=== PATIENT | male | born 1990 | race Caucasian/White ===

== ENCOUNTER 2016-10-19 02:34 | Inpatient (IN) | payer SELFPAY ==
[~2016-10-19] VITALS: Ht 182.9 cm; Wt 77.1 kg
[2016-10-19] MEDS ORDERED: ONDANSETRON HCL 4 MG/2 ML VIAL ONE (03:07)
[2016-10-19] MEDS ORDERED: SODIUM CHLORIDE 0.9% 1,000 ML IV ONE ×2 (03:15→07:30)
[2016-10-19] MEDS ORDERED: DEXTROSE (50%) 50ML SYRG IV ONE (03:15)
[2016-10-19] MEDS ORDERED: ONDANSETRON HCL 4 MG/2 ML VIAL IV ONE (03:15)
[2016-10-19 03:52] LABS: Basophils # (auto) 0.1 uL; Basophils % (auto) 0.3 % (0.0-2.0); CONDITION Y; DEFINITIVE SEE PRINTOUT; Eosinophils # (auto) 0.1 uL; Eosinophils % (auto) 0.4 % (0.0-7.0); Hematocrit 49.6 % (41.0-53.0); Hemoglobin 16.9 g/dL (13.5-17.5); Lymphocytes # (auto) 5.5 uL; Lymphocytes % (auto) 21.2 % (10.0-50.0); Mean Corpuscular Hgb Conc. 34.1 g/dL (32.0-36.0); Mean Corpuscular Volume 88.1 fL (80.0-100.0); Mean Platelet Volume 13.9 fL (7.4-10.4); Monocytes % (auto) 3.8 % (0.0-12.0); Neutrophils # (auto) 19.3 uL; Neutrophils % (auto) 74.3 % (37.0-80.0); Platelet Count (auto) 176 10^3/uL (140-450); SUSPECT SEE PRINTOUT
[2016-10-19 04:08] LABS: INR 1.01 (0.9-1.15); Partial Thromboplastin Time 24.3 sec (22.64-33.71)
[2016-10-19 04:26] LABS: BUN/Creatinine Ratio 18.1; Bilirubin, Total 0.9 mg/dL (0.2-1.0); Calcium 9.5 mg/dL (8.5-10.1); Salicylate < 1.7 mg/dL (2.8-20.0); Total Protein 8.2 g/dL (6.4-8.2)
[2016-10-19 04:28] LABS: Acetaminophen < 2.0 ug/mL (10-30)
[2016-10-19 04:33] LABS: Potassium 2.6 mmol/L (3.5-5.1)
[2016-10-19] MEDS ORDERED: POTASSIUM CHL 20MEQ/100ML 100 ML IV ONE (05:05)
[2016-10-19] MEDS: POTASSIUM CHL 20MEQ/100ML 100 ML IV SCH ×2 (05:17→07:31)
[2016-10-19] MEDS ORDERED: PIPERACILLIN-TAZOB 3.375GM 100 ML IV ONE (05:30)
[2016-10-19] MEDS ORDERED: SODIUM CHLORIDE 0.9% 100 ML IV ONE (07:30)
[2016-10-19] MEDS ORDERED: VANCOMYCIN PER PHARMACY 0 MG IV SCH (08:15)
[2016-10-19 08:44] LABS: Urine Bilirubin Negative (Negative); Urine Blood Negative /uL (Negative); Urine Color Yellow (Yellow); Urine Glucose 3+ mg/dL (Normal); Urine Ketone 3+ (Negative); Urine Nitrite Negative (Negative); Urine RBC 1 /hpf (0 - 3); Urine Urobilinogen Normal (Negative)
[2016-10-19] MEDS ORDERED: NITROGLYCERIN 0.4 MG SL TAB SL PRN (08:45)
[2016-10-19] MEDS ORDERED: ONDANSETRON HCL 4 MG/2 ML VIAL IV PRN (08:45)
[2016-10-19] MEDS ORDERED: HYDROcodone-ACET 5/325MG TAB PO PRN (08:45)
[2016-10-19] MEDS ORDERED: TEMAZEPAM 15 MG CAP PO PRN (08:45)
[2016-10-19] MEDS ORDERED: ACETAMINOPHEN 325 MG TAB PO PRN (08:45)
[2016-10-19] MEDS ORDERED: MORPHINE SULF INJ 2 MG/ML SYRINGE 1ML IV PRN ×2 (08:45)
[2016-10-19] MEDS: SODIUM CHLORIDE 0.9% 1,000 ML IV SCH ×3 (09:01→12:36)
[2016-10-19] MEDS ORDERED: diphenhdrAMINE HCL 50 MG/1 ML VL ONE (09:22)
[2016-10-19 09:23] LABS: Anion Gap 9 (5-15); BUN/Creatinine Ratio 19.8; Blood Urea Nitrogen 18 mg/dL (7-18); Calcium 7.8 mg/dL (8.5-10.1); Carbon Dioxide 22 mmol/L (21-32); Chloride 112 mmol/L (98-107); GFR African American 130 mL/min; GFR Non-African American 107 mL/min; Glucose 68 mg/dL (74-106); Potassium 4.6 mmol/L (3.5-5.1); Sodium 143 mmol/L (136-145)
[2016-10-19] MEDS ORDERED: diphenhdrAMINE HCL 50 MG/1 ML VL IV ONE (09:30)
[2016-10-19 10:05] VITALS: BP 153/93
[2016-10-19] MEDS: MULTIPLE VITAMIN TAB PO SCH (10:18)
[2016-10-19] MEDS: FAMOTIDINE 20 MG TAB PO SCH ×2 (10:18→22:23)
[2016-10-19] MEDS: OSELTAMIVIR 75 MG CAP PO SCH ×2 (10:18→22:23)
[2016-10-19] MEDS: VANCOMYCIN 1,250 MG in D5W 5% 250 ML IV SCH ×2 (12:36→22:23)
[2016-10-19 13:00] VITALS: BP 138/67
[2016-10-19] MEDS: PIPERACILLIN-TAZOB 3.375GM 100 ML IV SCH ×2 (15:59→18:32)
[2016-10-19 17:00] VITALS: BP 145/50
[2016-10-19 20:00] VITALS: BP 121/66
[2016-10-19 22:06] VITALS: BP 121/66
[2016-10-20] MEDS: PIPERACILLIN-TAZOB 3.375GM 100 ML IV SCH ×2 (00:13→05:37)
[2016-10-20] MEDS ORDERED: [UNRECOGNIZED DRUG - CODE] OR (02:45)
[2016-10-20 05:06] VITALS: BP 115/67
[2016-10-20 06:40] LABS: Albumin 3.6 g/dL (3.4-5.0); Anion Gap 8 (5-15); Calcium 8.3 mg/dL (8.5-10.1); Carbon Dioxide 27 mmol/L (21-32); Chloride 109 mmol/L (98-107); Sodium 144 mmol/L (136-145)
[2016-10-20 06:42] LABS: Basophils # (auto) 0 uL; Basophils % (auto) 0.3 % (0.0-2.0); CONDITION Y; Eosinophils # (auto) 0.1 uL; Eosinophils % (auto) 0.9 % (0.0-7.0); Hematocrit 42.5 % (41.0-53.0); Hemoglobin 14.7 g/dL (13.5-17.5); Lymphocytes # (auto) 1.5 uL; Mean Corpuscular Hemoglobin 30.3 pg (28.0-32.0); Mean Corpuscular Hgb Conc. 34.5 g/dL (32.0-36.0); Mean Platelet Volume 12.6 fL (7.4-10.4); Monocytes # (auto) 0.5 uL; Monocytes % (auto) 6.9 % (0.0-12.0); Neutrophils # (auto) 5.5 uL; Neutrophils % (auto) 71.9 % (37.0-80.0); Platelet Count (auto) 128 10^3/uL (140-450); Red Cell Distribution Width 12.8 % (11.6-16.0); White Blood Cell 7.7 10^3/uL (4.4-10.8)
[2016-10-20 06:44] LABS: Aspartate Aminotransferase 35 U/L (15-37); Blood Urea Nitrogen 9 mg/dL (7-18); GFR African American 101 mL/min; GFR Non-African American 83 mL/min; Glucose 83 mg/dL (74-106)
[2016-10-20 06:48] LABS: Alkaline Phosphatase 60 U/L (45-117); Total Protein 6.1 g/dL (6.4-8.2)
[2016-10-20 08:00] VITALS: BP 122/83
[2016-10-20 09:00] VITALS: BP 122/83
[2016-10-20] MEDS: MULTIPLE VITAMIN TAB PO SCH (10:13)
[2016-10-20] MEDS: FAMOTIDINE 20 MG TAB PO SCH (10:13)
[2016-10-20] MEDS: VANCOMYCIN 1,250 MG in D5W 5% 250 ML IV SCH (10:14)
[2016-10-20] MEDS: SODIUM CHLORIDE 0.9% 1,000 ML IV SCH (10:14)
[2016-10-20 13:00] VITALS: BP 142/74
[2016-10-20 15:08] VITALS: BP 142/74
== END 2016-10-20 14:55 | disposition home or self-care (01) | DRG 641 ==
LOC: ER 02:34 → TELE 02:35 → TELE-WESTW 09:54 → TELE-E-ADS 10:05 → TELE-WESTW 11:03
PROVIDERS: ADMIT Internal Medicine; ATTEND Internal Medicine
DX: E16.2 Hypoglycemia, unspecified (principal); E87.6 Hypokalemia; D72.829 Elevated white blood cell count, unspecified; F12.10 Cannabis abuse, uncomplicated; Z72.89 Other problems related to lifestyle; Z71.51 Drug abuse counseling and surveillance of drug abuser
CPT/HCPCS: 36415; 71020; 80048; 80053; 80307; 80320; 80329; 81001; 82962; 83605; 84484; 85025; 85610; 85730; 86141; 87040; 87045; 87070; 87086; 87205; 87400; 87493; 87899; 93005; 93306; 96361; 96365; 96366; 96368; 96375; J2405; J2543; J3480; J7060